=== PATIENT | female | born 1995 | race Caucasian/White ===

== ENCOUNTER 2021-01-01 23:35 | Emergency (ER) | payer OTHER ==
[~2021-01-01] VITALS: Ht 172.7 cm; Wt 97.5 kg
[2021-01-01 23:49] VITALS: BP 113/72
[2021-01-02] MEDS ORDERED: APAP W/CODEINE1 TA2 PO (02:10)
[2021-01-02] MEDS ORDERED: MOXIFLOXACIN3 ML OPHTHALMIC (02:10)
== END 2021-01-02 02:19 | disposition home or self-care (01) ==
LOC: ER 23:35
DX: H57.89 Other specified disorders of eye and adnexa (principal); H57.11 Ocular pain, right eye